=== PATIENT | female | born 1985 | race Hispanic/Latino ===

== ENCOUNTER 2021-11-22 14:27 | Emergency (ER) | payer OTHER ==
[~2021-11-22] VITALS: Ht 165.1 cm; Wt 99.8 kg
[~2021-11-22 14:27] MED LIST: HUMALOG100 UNIT/1; LEVEMIR100 UNIT/1; ONDANSETRO4 MG/UDTAB SL
[2021-11-22] MEDS ORDERED: BACTRIM DS TAB1 EACH PO (14:50)
[2021-11-22] MEDS ORDERED: CLEOCIN HCL300 MG PO (14:50)
== END 2021-11-22 15:00 | disposition home or self-care (01) ==
LOC: ER 14:43
DX: L73.2 Hidradenitis suppurativa (principal); I10 Essential (primary) hypertension; E11.9 Type 2 diabetes mellitus without complications; E28.2 Polycystic ovarian syndrome; F31.9 Bipolar disorder, unspecified; F43.10 Post-traumatic stress disorder, unspecified
CPT/HCPCS: 99282